=== PATIENT | male | born 1940 | race Caucasian/White ===

== ENCOUNTER 2021-03-19 10:08 | Observation (INO) | payer MEDICARE, OTHER ==
[2021-03-17 12:48] VITALS: BMI 33.7
[2021-03-19 10:45] LABS: #Basophils 0.1 thou/uL (0.0-0.2); #Monocytes 0.2 thou/uL (0.11-0.59); #Neutrophils 3.3 thou/uL (1.40-6.50); %Basophils 1.1 % (0.0-1.0); %Eosinophils 0.4 % (0.0-10.0); %Lymphocytes 21.8 % (21.0-51.0); %Monocytes 4.6 % (0.0-10.0); %Neutrophils 72.2 % (42.0-75.0); Hemoglobin 13.6 g/dL (14.0-18.0); Mean Corpuscular HGB CONC 35.1 g/dL (32.0-36.0); Mean Corpuscular Hemoglobin 32.3 pg (27.0-31.0); Mean Corpuscular Volume 92.1 fL (78.0-98.0); Mean Platelet Volume 8.4 fL (7.4-10.4); Platelet Count 141 thou/uL (130-400); RBC Distribution Width 12.5 % (11.5-14.5); Red Blood Cell (RBC) Count 4.22 mill/uL (4.70-6.10); White Blood Cell (WBC) Count 4.5 thou/uL (4.8-10.8)
[2021-03-19 10:52] LABS: INR-International Normal Ratio 0.9; PTT 29.1 sec (22.9-36.1); Prothrombin Time 12.7 sec (12.0-14.7)
[2021-03-19] MEDS ORDERED: EPINEPHrine 1 MG/ML AMP ONE (11:02)
[2021-03-19] MEDS ORDERED: Thrombin 5000 UNITS/5 ML VIAL ONE (11:02)
[2021-03-19] MEDS ORDERED: Bupivacaine PF 0.5% 30 ML VIAL ONE ×2 (11:02→14:04)
[2021-03-19 11:10] LABS: Anion Gap 12 mmol/L (10-20); BUN (Urea Nitrogen) 16 mg/dL (8.4-25.7); Calc. Creatinine Clearance 71 mL/min (70-130); Calcium 9.4 mg/dL (7.8-10.44); Carbon Dioxide 28 mmol/L (23-31); Chloride 110 mmol/L (98-107); Glucose 132 mg/dL (83-110); Sodium 145 mmol/L (136-145)
[2021-03-19] MEDS ORDERED: Fentanyl 100 MCG/2 ML VIAL ONE ×2 (12:08→13:44)
[2021-03-19] MEDS ORDERED: Lidocaine 1% PF 5 ML VIAL ONE (12:13)
[2021-03-19] MEDS ORDERED: Rocuronium Bromide 10 MG/ML (10ML VIAL) ONE (12:13)
[2021-03-19] MEDS ORDERED: ePHEDrine Sulfate 50 MG/10 ML VIAL ONE (12:13)
[2021-03-19] MEDS ORDERED: Ondansetron PF 4 MG/2 ML Vial ONE (12:13)
[2021-03-19] MEDS ORDERED: PROPOFOL 200 MG/20 ML VIAL ONE (12:13)
[2021-03-19] MEDS ORDERED: PHENYLEPHRINE-NS 100 MCG/ML 10 ML SYRINGE ONE (12:13)
[2021-03-19] MEDS ORDERED: Glycopyrrolate 0.2 MG/ML 5 ML SYRINGE ONE (12:13)
[2021-03-19] MEDS ORDERED: Dexamethasone 20 MG/5 ML VIAL ONE (12:13)
[2021-03-19] MEDS ORDERED: Phenylephrine 10 MG/ML VIAL ONE ×2 (12:55→13:28)
[2021-03-19] MEDS ORDERED: HYDROcodone/Acetaminophen 10/325 mg Tablet PO PRN ×2 (14:54)
[2021-03-19] MEDS ORDERED: diphenhydrAMINE 50 MG/ML VIAL IVP PRN (14:54)
[2021-03-19] MEDS ORDERED: Bisacodyl 10 MG SUPP PR PRN (14:54)
[2021-03-19] MEDS ORDERED: diphenhydrAMINE 25 MG CAP PO PRN (14:54)
[2021-03-19] MEDS ORDERED: Promethazine HCl 25 MG/ML VIAL IM PRN (14:54)
[2021-03-19] MEDS ORDERED: Promethazine 25 MG TAB PO PRN (14:54)
[2021-03-19] MEDS ORDERED: Ondansetron PF 4 MG/2 ML Vial IVP PRN (14:54)
[2021-03-19] MEDS ORDERED: tiZANidine HCl 4 MG TAB PO PRN (14:54)
[2021-03-19] MEDS ORDERED: Promethazine HCl 12.5 MG SUPP PR PRN (14:54)
[2021-03-19] MEDS ORDERED: Morphine 2 MG/ML VIAL SLOW IVP PRN (14:54)
[2021-03-19] MEDS ORDERED: Acetaminophen/Codeine 30-300mg Tablet PO PRN ×2 (14:54)
[2021-03-19] MEDS ORDERED: Mag-Al 1200 mg/1200 mg/30 ML UDCUP PO PRN (14:54)
[2021-03-19] MEDS ORDERED: Milk Of Magnesia 30 ML UDCUP PO PRN (14:54)
[2021-03-19] MEDS ORDERED: Scopolamine 1.5 mg/72 hour Patch TD SCH (15:00)
[2021-03-19] MEDS: Sodium Chloride 0.9% 1,000 ML IV SCH (17:46)
[2021-03-19] MEDS: CEFAZOLIN 2 GM in Premix Bag 1 BAG IVPB SCH (20:08)
[2021-03-20] MEDS: Sodium Chloride 0.9% 1,000 ML IV SCH (00:18)
[2021-03-20] MEDS: CEFAZOLIN 2 GM in Premix Bag 1 BAG IVPB SCH ×2 (03:10→11:00)
[2021-03-20] MEDS ORDERED: Tamsulosin HCl 0.4 MG CAP PO SCH (06:00)
[2021-03-20] MEDS ORDERED: Ferrous Sulfate 325 MG TAB PO SCH (09:00)
[2021-03-20] MEDS ORDERED: Doxazosin Mesylate 4 MG TAB PO SCH (09:00)
[2021-03-20] MEDS ORDERED: Multivitamin W/ Minerals 1 TAB PO SCH (09:00)
[2021-03-20] MEDS ORDERED: Rosuvastatin 20 MG TAB PO SCH (09:00)
[2021-03-20] MEDS ORDERED: Allopurinol 100 MG TAB PO SCH (09:00)
[2021-03-20 11:57] VITALS: BP 135/55; TEMP 98.1
== END 2021-03-20 12:00 | disposition home or self-care (01) ==
LOC: SDC 10:08 → SURG B 14:57 → INTOOBSV 14:57
PROVIDERS: ADMIT Neurological Surgery; ATTEND Neurological Surgery
PROC: 01NB0ZZ Release Lumbar Nerve, Open Approach (ICD-10-PCS; principal; 2021-03-19)
DX: M48.062 Spinal stenosis, lumbar region with neurogenic claudication (principal); I10 Essential (primary) hypertension; E78.5 Hyperlipidemia, unspecified; E78.00 Pure hypercholesterolemia, unspecified; M10.9 Gout, unspecified; E66.9 Obesity, unspecified; C95.90 Leukemia, unspecified not having achieved remission; Z68.33 Body mass index [BMI] 33.0-33.9, adult; Z79.899 Other long term (current) drug therapy
CPT/HCPCS: 36415; 76000; 80048; 85025; 85610; 85730; 96374; 96376; G0378; J0171; J0690; J1100; J2370; J2405; J2704; J3010; J3370; J3490; S0020